=== PATIENT | female | born 1995 | race Caucasian/White ===

== ENCOUNTER 2017-03-07 13:11 | Emergency (ER) | payer BC ==
[2017-03-07] MEDS ORDERED: HYDROmorphone 2 MG/ML SDV IM ONE (14:17)
[2017-03-07] MEDS ORDERED: Lactated Ringers 1,000 ML IV ONE (14:48)
[2017-03-07] MEDS ORDERED: Ondansetron 4 MG/2 ML SDV IVPUSH ONE (14:49)
--- NOTE | 2017-03-07 14:55 | EDM.PDOC ---
ED HPI GENERAL MEDICAL PROBLEM - General Chief Complaint: Back Pain or Injury Stated Complaint: ABD PAIN Time Seen by Provider: 03/07/17 14:25 Source of Information: Reports: Patient History Limitations: Reports: No Limitations - History of Present Illness INITIAL COMMENTS - FREE TEXT/NARRATIVE: 22 yo female with onset today of nausea and L flank pain. No fever. No gross hematuria. Urine dark. No hx of stones or UTI's. Phx of anemia. Took ibuprofen before arrval without relief. Onset: Today Onset Date: 03/07/17 Duration: Hour(s): Location: Reports: Back (L flank) Quality: Reports: Ache, Pressure Severity: Moderate Improves with: Reports: None Worsens with: Reports: None Context: Reports: Other (unknown) Associated Symptoms: Reports: Diaphoresis, Nausea/Vomiting (no vomiting) Treatments INSIDE WIRER: Reports: NSAIDS LEFT BACK AND SIDE Pain Score (Numeric/FACES): 5 - Related Data Allergies Allergy/AdvReac Type Severity Reaction Status Date / Time Sulfa (Sulfonamide Allergy Hives Verified 03/07/17 13:30 Antibiotics) Home Meds: Home Meds Levothyroxine 25 mcg PO DAILY 08/29/14 [History] medroxyPROGESTERone [Provera] 10 mg PO DAILY 08/29/14 [History] Acetaminophen/HYDROcodone [[place] 325-5 MG] 1 - 2 tab PO Q6H PRN #14 tab [Rx] Cephalexin [IJD: Cephalexin] 500 mg PO .EVERY 8 HOURS #20 cap 03/07/17 [Rx] Omeprazole 20 mg PO ASDIRECTED 03/07/17 [History] Ondansetron [Zofran ODT] 4 mg PO Q6H PRN #7 tab.dis 03/07/17 [Rx] Past Medical History Hematologic History: Reports: Anemia - Past Surgical History Female Surgical History: Reports: D&C Social & Family History - Tobacco Use Smoking Status *Q: Never Smoker Second Hand Smoke Exposure: No - Recreational Drug Use Recreational Drug Use: No ED ROS GENERAL - Review of Systems Review Of Systems: See Below Constitutional: Reports: Diaphoresis (mild) HEENT: Reports: No Symptoms Respiratory: Reports: No Symptoms Cardiovascular: Reports: No Symptoms GI/Abdominal: Reports: No Symptoms : Reports: Flank Pain (Left) Musculoskeletal: Reports: Back Pain (L mid/lateral) Skin: Reports: Diaphoresis (mild) Neurological: Reports: No Symptoms Psychiatric: Reports: No Symptoms ED EXAM,LOWER BACK PAIN/INJURY - Physical Exam Exam: See Below Exam Limited By: No Limitations General Appearance: Alert, WD/WN, No Apparent Distress, Obese Eye Exam: Bilateral Eye: Normal Inspection Ears: Normal External Exam, Normal Canal, Hearing Grossly Normal Nose: Normal Inspection, Normal Mucosa, No Blood Throat/Mouth: Normal Inspection, Normal Lips, Normal Teeth, Normal Oropharynx, Normal Voice, No Airway Compromise Head: Atraumatic, Normocephalic Neck: Normal Inspection, Supple, Non-Tender Respiratory/Chest: No Respiratory Distress, Lungs Clear, Normal Breath Sounds, No Accessory Muscle Use Cardiovascular: Regular Rate, Rhythm, No Edema GI/Abdominal: Normal Bowel Sounds, Soft, Non-Tender, No Distention Back Exam: Normal Inspection. No: CVA Tenderness (R), CVA Tenderness (L) Extremities: Normal Inspection, Normal Range of Motion, Non-Tender, No Pedal Edema Neurological: Alert, Normal Mood/Affect, CN II-XII Intact Psychiatric: Normal Affect, Normal Mood Skin Exam: Warm, Dry, Intact, Normal Color, No Rash Lymphatic: No Adenopathy Course - Vital Signs Last Recorded V/S: Last Vital Signs Temp 36.1 C 03/07/17 13:32 Pulse 75 03/07/17 13:32 Resp 18 03/07/17 13:32 BP 141/89 H 03/07/17 13:32 Pulse Ox 100 03/07/17 13:32 - Orders/Labs/Meds Orders: Active Orders 24 hr Category Date Time Status Abdomen Pelvis wo Cont [CT] Stat Exams 03/07/17 15:35 Taken CULTURE URINE [RM] Stat Lab 03/07/17 14:00 Received Sodium Chloride 0.9% [Saline Flush] Med 03/07/17 15:02 Active 10 ml FLUSH ASDIRECTED PRN Saline Lock Insert [OM.PC] Routine Oth 03/07/17 15:02 Ordered Medication Orders Sodium Chloride (Saline Flush) 10 ml FLUSH ASDIRECTED PRN PRN Reason: Keep Vein Open Last Admin: 03/07/17 15:13 Dose: 10 ml Labs: Laboratory Tests 03/07/17 03/07/17 03/07/17 Range/Units 14:10 15:00 15:00 WBC 11.3 (4.5-12.0) X10-3/uL RBC 4.93 (3.23-5.20) x10(6)uL Hgb 13.8 (11.5-15.5) g/dL Hct 40.9 (30.0-51.3) % MCV 82.9 (80-96) fL MCH 28.0 (27.7-33.6) pg MCHC 33.8 (32.2-35.4) g/dL RDW 13.1 (11.5-15.5) % Plt Count 243 (125-369) X10(3)uL Sodium 138 (135-145) mmol/L Potassium 3.6 (3.5-5.3) mmol/L Chloride 110 (100-110) mmol/L Carbon Dioxide 19 L (23-29) mmol/L BUN 13 (5-20) mg/dL Creatinine 1.0 (0.6-1.3) mg/dL Est Cr Clr Drug Dosing TNP Estimated GFR (MDRD) > 60 (>60) BUN/Creatinine Ratio 13.0 (9-20) Glucose 105 (80-116) mg/dL Calcium 8.7 (8.6-10.2) mg/dL C-Reactive Protein 1.5 H (0.0-1.0) mg/dL Urine Color Yellow (YELLOW) Urine Appearance Slightly cloudy (CLEAR) Urine pH 5.0 (5.0-6.5) Ur Specific [place] 1.030 H (1.010-1.025) Urine Protein 30 H (NEGATIVE) mg/dL Urine Glucose (UA) Normal (NEGATIVE) mg/dL Urine Ketones 15 H (NEGATIVE) mg/dL Urine Occult Blood Large H (NEGATIVE) Urine Nitrite Negative (NEGATIVE) Urine Bilirubin Small H (NEGATIVE) Urine Urobilinogen 1 H (NEGATIVE) mg/dL Ur Leukocyte Esterase Moderate H (NEGATIVE) Urine RBC 10-20 H (0) Urine WBC 10-20 H (0) Ur Squamous Epith Cells Occasional (NS,R,O) Calcium Oxalate Crystal Few H (NS) Urine Bacteria Moderate H (NS) Urine Yeast Moderate H (NS) Meds: Medications Generic Name Dose Route Start Last Admin Trade Name Freq PRN Reason Stop Dose Admin Sodium Chloride 10 ml 03/07/17 15:02 03/07/17 15:13 Saline Flush FLUSH 10 ml ASDIRECTED PRN Administration Keep Vein Open Discontinued Medications Generic Name Dose Route Start Last Admin Trade Name Trevonq PRN Reason Stop Dose Admin Acetaminophen 1,000 mg 03/07/17 15:34 03/07/17 15:37 Tylenol Extra Strength PO 03/07/17 15:35 1,000 mg ONETIME ONE Administration Hydromorphone HCl 1 mg 03/07/17 14:17 03/07/17 14:22 Dilaudid IM 03/07/17 14:18 1 mg ONETIME ONE Administration Hydromorphone HCl 0.5 mg 03/07/17 15:37 03/07/17 15:47 Dilaudid IVPUSH 03/07/17 15:38 0.5 mg ONETIME ONE Administration Lactated Ringer's 1,000 mls @ 1,000 mls/hr 03/07/17 14:48 03/07/17 15:13 Ringers, Lactated IV 03/07/17 15:47 1,000 mls/hr BOLUS ONE Administration Ceftriaxone Sodium 1,000 mg/ 50 mls @ 100 mls/hr 03/07/17 16:20 03/07/17 16: 38 Sodium Chloride IV 03/07/17 16:49 100 mls/hr ONETIME ONE Administration Ondansetron HCl 4 mg 03/07/17 14:49 03/07/17 15:16 Zofran IVPUSH 03/07/17 14:50 4 mg ONETIME ONE Administration Departure - Departure Time of Disposition: 17:10 Disposition: Home, Self-Care 01 Condition: Fair Clinical Impression: UTI (urinary tract infection) Qualifiers: Urinary tract infection type: site unspecified Hematuria presence: with hematuria Qualified Code(s): N39.0 - Urinary tract infection, site not specified - Discharge Information Prescriptions: Acetaminophen/HYDROcodone [[place] 325-5 MG] 1 - 2 tab PO Q6H PRN #14 tab PRN Reason: Pain Cephalexin [IJD: Cephalexin] 500 mg PO .EVERY 8 HOURS #20 cap Ondansetron [Zofran ODT] 4 mg PO Q6H PRN #7 tab.dis PRN Reason: Nausea Referrals: Jory Ramesh [employer] [Primary Care Provider] - Forms: ED Department Discharge, ED Return to Work/School Form Additional Instructions: Take Cephalexin starting tomorrow early afternoon every 8 hrs until gone. Take Zofran as needed for nausea control. Take Harrod and/or ibuprofen as needed for pain or fever control. Drink more fluids. Rest. Recheck with your doctor in 2-3 days. Return if worse. - My Orders Last 24 Hours: My Active Orders 03/07/17 14:00 CULTURE URINE [RM] Stat 03/07/17 15:02 Sodium Chloride 0.9% [Saline Flush] 10 ml FLUSH ASDIRECTED PRN Saline Lock Insert [OM.PC] Routine 03/07/17 15:35 Abdomen Pelvis wo Cont [CT] Stat - Assessment/Plan Last 24 Hours: My Active Orders 03/07/17 14:00 CULTURE URINE [RM] Stat 03/07/17 15:02 Sodium Chloride 0.9% [Saline Flush] 10 ml FLUSH ASDIRECTED PRN Saline Lock Insert [OM.PC] Routine 03/07/17 15:35 Abdomen Pelvis wo Cont [CT] Stat
[2017-03-07] MEDS ORDERED: Sodium Chloride 0.9% 10 ML Syringe FLUSH PRN (15:02)
[2017-03-07] MEDS ORDERED: Acetaminophen 500 MG Tab PO ONE (15:34)
[2017-03-07] MEDS ORDERED: HYDROmorphone 2 MG/ML SDV IVPUSH ONE (15:37)
[2017-03-07] MEDS ORDERED: cefTRIAXone 1,000 MG in Sodium Chloride 0.9% 50 ML IV ONE (16:20)
[2017-03-07 17:21] VITALS: BP 138/78
--- NOTE | 2017-03-08 09:20 | CT ---
INDICATION: Left-sided pain started at 1230 today. Question kidney stone. CT ABDOMEN AND PELVIS WITHOUT CONTRAST: Spiral 1.25-mm axial sections were obtained through the abdomen and pelvis with sagittal and coronal reconstructions, utilizing no contrast for renal calculus protocol. Total Exam DLP = 2182.20 mGy-cm. The lower lung marie and pleural spaces visualized appeared normal. The heart was not enlarged. No gallstones were demonstrated. No liver abnormality was seen. The spleen and pancreas appear normal. The adrenal glands were unremarkable. There is suggestion of some very tiny calcifications in the mid to lower pole area of the left kidney on the order of 1 mm in diameter or smaller. There is relative dilatation of the proximal left ureter, possibly with a calcification within it of very small size. The left renal pelvis appears slightly more prominent than the right. The left ureter transitions to normal caliber in its proximal to mid third. There does appear to be a definite calculus of very small size in the proximal ureter, however, where it is relatively dilated. That calcification does not appear to be obstructive, however. As mentioned above, however, the proximal ureter and pyelocaliceal system on the left is relatively prominent compared with the right, raising question of a possibility of either an intermittent or a recent obstructive process at the proximal third of the left ureter. A significant sized area of renal calcinosis was not identified bilaterally. The urinary bladder was not distended - no definite calculi were seen within the urinary bladder. What appears to be a phlebolith is noted at the right lower pelvis. No definite uterine abnormality was seen. No evidence of bowel obstruction was identified. The appendix appeared normal to slightly prominent in caliber, but with no definite evidence of appendicitis. It is seen on axial images #192 through #218. It extends cranially and retrocecal in the right paracolic gutter. The possibility of pyelonephritis on the left cannot be excluded and, as well, a recent obstructive process cannot be excluded. Depending upon clinical correlation, CT with IV contrast may be helpful for further evaluation. No retroperitoneal masses were identified. Retroperitoneal lymphadenopathy is minimal and nonspecific. No additional organomegaly, mass lesions, or free fluid collections were identified in the abdomen or pelvis. IMPRESSION: 1. Relatively dilated left pyelocaliceal system and proximal third of the left ureter with a calcification noted in the proximal third of the left ureter and a few areas of very tiny calcification suggested in the lower left kidney. Findings are felt to be most compatible with a recent obstructive uropathy, but should be correlated clinically. CT with IV contrast may be of further diagnostic benefit, depending upon clinical correlation, especially if pyelonephritis is suspected clinically. 2. Mild dextroconvex scoliosis thoracolumbar spine could be positional. CT PELVIS: Examination of the pelvis was obtained by CT, as noted above, revealing no organomegaly, mass lesions, or free fluid collections. What appears to be a phlebolith is noted in the lower right pelvis. No urinary bladder calculi or ureteral calculi were identified. Report was called to Dr. Hayes at 1619 hours, 03/07/2017. [facility]
== END 2017-03-07 17:10 | disposition home or self-care (01) ==
LOC: FB.ED 13:11
DX: N39.0 Urinary tract infection, site not specified (principal); Z88.2 Allergy status to sulfonamides; Z79.899 Other long term (current) drug therapy
CPT/HCPCS: 36415; 74176; 80048; 81001; 85027; 86140; 87086; 96361; 96365; 96375; 96376; 99285; A9270; J0696; J1170; J2405; J7050; J7120

== ENCOUNTER 2017-03-23 08:21 | Day surgery (SDC) | payer BC ==
[2017-03-23] MEDS ORDERED: Sodium Chloride 0.9% 10 ML Syringe FLUSH PRN (08:30)
[2017-03-23] MEDS ORDERED: Lactated Ringers 1,000 ML IV SCH (08:30)
--- NOTE | 2017-03-23 09:13 | PCM.HP ---
H&P History of Present Illness - General Date of Service: 03/23/17 Admit Problem/Dx: Admission Diagnosis/Problem Admission Diagnosis/Problem Esophagogastroduodenoscopy Source of Information: Patient - History of Present Illness Initial Comments - Free Text/Narative: 22 yo wf who presents with a hx of epigastric pain, and nausea. This has been going on for about a month. The pain can radiate a little to the ruq. She has had an us which was negative. No black or bloody stools. - Related Data Allergies/Adverse Reactions: Allergies Allergy/AdvReac Type Severity Reaction Status Date / Time Sulfa (Sulfonamide Allergy Hives Verified 03/07/17 13:30 Antibiotics) Home Medications: Home Meds Levothyroxine 25 mcg PO DAILY 08/29/14 [History] medroxyPROGESTERone [Provera] 10 mg PO DAILY 08/29/14 [History] Acetaminophen/HYDROcodone [[place] 325-5 MG] 1 - 2 tab PO Q6H PRN #14 tab [Rx] Cephalexin [IJD: Cephalexin] 500 mg PO .EVERY 8 HOURS #20 cap 03/07/17 [Rx] Omeprazole 20 mg PO ASDIRECTED 03/07/17 [History] Ondansetron [Zofran ODT] 4 mg PO Q6H PRN #7 tab.dis 03/07/17 [Rx] Past Medical History Endocrine/Metabolic History: Reports: Hypothyroidism Hematologic History: Reports: Anemia - Past Surgical History Female Surgical History: Reports: D&C Social & Family History - Tobacco Use Smoking Status *Q: Never Smoker Second Hand Smoke Exposure: No - Alcohol Use Alcohol Use History: Yes Alcohol Use Frequency: Rarely Alcohol Use Comment: 2-3 beers a month - Recreational Drug Use Recreational Drug Use: No H&P Review of Systems - Review of Systems: Review Of Systems: See Below General: Reports: No Symptoms HEENT: Reports: No Symptoms Pulmonary: Reports: Cough (with recent could ) Cardiovascular: Reports: No Symptoms Gastrointestinal: Reports: Abdominal Pain, Nausea Genitourinary: Reports: No Symptoms Musculoskeletal: Reports: Back Pain Exam - Exam Exam: See Below - Vital Signs Weight: 131.542 kg - Exam General: Alert, Oriented Lungs: Clear to Auscultation, Normal Respiratory Effort Cardiovascular: Regular Rate, Regular Rhythm GI/Abdominal Exam: Normal Bowel Sounds, Soft, Non-Tender Back Exam: Normal Inspection Skin: Warm, Dry, Intact - Patient Data Lab Results Last 24 hrs: Laboratory Results - last 24 hr 03/23/17 Range/Units 08:35 Urine HCG, Qual Negative (NEGATIVE) *Q Meaningful Use (ADM) - VTE *Q VTE Criteria *Q: - Stroke *Q Stroke Criteria *Q: - AMI *Q AMI Criteria *Q: - Problem List (1) Epigastric abdominal pain SNOMED Code(s): 95596340 ICD Code: R10.13 - EPIGASTRIC PAIN Status: Acute Current Visit: Yes Problem List Initiated/Reviewed/Updated: Yes Orders Last 24hrs: Active Orders 24 hr Category Date Time Status Patient Status [ADT] Routine ADT 03/23/17 08:30 Ordered Patient to Empty Bladder [RC] ASDIRECTED Care 03/23/17 08:30 Active Verify Patient Consent Obtain [RC] ASDIRECTED Care 03/23/17 08:30 Active Lactated Ringers [Ringers, Lactated] 1,000 ml Med 03/23/17 08:30 Active IV ASDIRECTED Sodium Chloride 0.9% [Saline Flush] Med 03/23/17 08:30 Active 10 ml FLUSH ASDIRECTED PRN Peripheral IV Insertion Adult [OM.PC] Routine Oth 03/23/17 08:30 Ordered Resuscitation Status Routine Resus Stat 03/22/17 14:25 Ordered Medication Orders Lactated Ringer's (Ringers, Lactated) 1,000 mls @ 125 mls/hr IV ASDIRECTED BESSY Sodium Chloride (Saline Flush) 10 ml FLUSH ASDIRECTED PRN PRN Reason: Keep Vein Open Assessment/Plan Comment:: plan egd. procedure and risks explained to the pt to include bleeding, infection and perforation. She expressed understanding and asks us to proceed.
[2017-03-23] MEDS ORDERED: fentaNYL 100 MCG/2 ML SDV IV ONE (11:30)
[2017-03-23] MEDS ORDERED: Midazolam 1 MG/ML 2 ML SDV IV ONE (11:30)
[2017-03-23] MEDS ORDERED: Lidocaine 2% 100 MG/5 ML Syringe IVPUSH ONE (11:30)
[2017-03-23] MEDS ORDERED: Propofol 200 MG/20 ML SDV IV ONE (11:30)
--- NOTE | 2017-03-23 12:02 | PCM.OPNOTE ---
- General Post-Op/Procedure Note Date of Surgery/Procedure: 03/23/17 Operative Procedure(s): egd with bx Findings: gastritis Pre Op Diagnosis: epgastric abd pain Post-Op Diagnosis: gastritis Anesthesia Technique: MAC Primary Surgeon: Blake Browning Anesthesia Provider: Chantel [place] Pathology: stomach Complications: None Condition: Good Free Text/Narrative:: see dictation
[2017-03-23 12:47] VITALS: BP 131/65
--- NOTE | 2017-03-23 14:00 | OR ---
DATE OF OPERATION: 03/23/2017 SURGEON: Blake Browning MD PROCEDURE PERFORMED: EGD with cold forceps biopsy. PREOPERATIVE DIAGNOSIS: Epigastric pain. POSTOPERATIVE DIAGNOSIS: Gastritis. INDICATIONS FOR PROCEDURE: This 22-year-old white female had one month history of epigastric abdominal pain and nausea. She was offered and accepted an EGD. DESCRIPTION OF PROCEDURE: After an excellent IV sedation was administered, the bite block was inserted. The flexible endoscope was passed without difficulty down the patient's esophagus into the stomach. Stomach was insufflated. Scope was passed through the pylorus to the second portion of duodenum and slowly withdrawn. The following findings were noted: Duodenum unremarkable. Stomach in the area of the antrum, mild gastritis. Biopsies were taken. GE junction measured approximately 35 cm. The esophagus was unremarkable. Stomach was deflated as the scope was removed. The patient tolerated the procedure well, was taken to recovery room in good condition. /[id number] ANUEL/PATRIA
== END 2017-03-23 12:54 | disposition home or self-care (01) ==
LOC: FB.SDS 08:21
PROVIDERS: ATTEND Surgery
DX: K29.50 Unspecified chronic gastritis without bleeding (principal); D64.9 Anemia, unspecified; Z88.2 Allergy status to sulfonamides; Z79.899 Other long term (current) drug therapy; Z98.890 Other specified postprocedural states
CPT/HCPCS: 43239; 81025; 88305; 88342; J2250; J2704; J3010; J7120

== ENCOUNTER 2017-04-06 01:44 | Emergency (ER) | payer BC ==
[2017-04-06] MEDS ORDERED: Ketorolac 60 MG/2 ML SDV IM ONE (01:54)
[2017-04-06] MEDS ORDERED: Ondansetron 4 MG Tab.DIS PO ONE (01:54)
--- NOTE | 2017-04-06 01:57 | EDM.PDOC ---
ED HPI GENERAL MEDICAL PROBLEM - General Chief Complaint: Genitourinary Problem Stated Complaint: UTI Time Seen by Provider: 04/06/17 01:50 Source of Information: Reports: Patient History Limitations: Reports: No Limitations - History of Present Illness INITIAL COMMENTS - FREE TEXT/NARRATIVE: Onset of L low back about 7 pm Tues. Has nausea, vomiting. No fever. Feels like a possible UTI. Had a UTI recently the middle of . Took a "pain pill" without relief. CT at that time was suggestive of a recently passed small kidney stone. Onset Date: 04/05/17 Onset Time: 19:00 Duration: Hour(s): Location: Reports: Back (Left low back) Quality: Reports: Ache Severity: Moderate Improves with: Reports: None Worsens with: Reports: None Context: Reports: Other (UTI a month ago.) Associated Symptoms: Reports: Nausea/Vomiting Treatments STATOR TESTER: Reports: Other Medication(s) Left Flank Pain Score (Numeric/FACES): 4 - Related Data Allergies Allergy/AdvReac Type Severity Reaction Status Date / Time Sulfa (Sulfonamide Allergy Hives Verified 04/06/17 02:11 Antibiotics) Home Meds: Home Meds Levothyroxine 25 mcg PO DAILY 08/29/14 [History] medroxyPROGESTERone [Provera] 10 mg PO DAILY 08/29/14 [History] Omeprazole 20 mg PO ASDIRECTED 03/07/17 [History] Ondansetron [Zofran ODT] 4 mg PO Q6H PRN #7 tab.dis 03/07/17 [Rx] Acetaminophen/HYDROcodone [[place] 325-5 MG] 2 tab PO Q6H PRN 04/06/17 [History] Acetaminophen/HYDROcodone [[place] 325-7.5 MG] 1 - 2 tab PO Q6H PRN #20 tab [Rx] Ondansetron [Zofran ODT] 4 mg PO Q6H PRN #10 tab.dis 04/06/17 [Rx] Past Medical History Endocrine/Metabolic History: Reports: Hypothyroidism Hematologic History: Reports: Anemia - Past Surgical History Female Surgical History: Reports: D&C Social & Family History - Tobacco Use Smoking Status *Q: Never Smoker Second Hand Smoke Exposure: No - Caffeine Use Caffeine Use: Reports: Soda - Recreational Drug Use Recreational Drug Use: No ED ROS GENERAL - Review of Systems Review Of Systems: See Below Constitutional: Reports: No Symptoms Respiratory: Reports: No Symptoms Cardiovascular: Reports: No Symptoms GI/Abdominal: Reports: Nausea, Vomiting : Reports: No Symptoms Musculoskeletal: Reports: Back Pain (left side) Skin: Reports: No Symptoms Neurological: Reports: No Symptoms ED EXAM, RENAL/ - Physical Exam Exam: See Below Exam Limited By: No Limitations General Appearance: Alert, WD/WN, No Apparent Distress, Obese Respiratory/Chest: No Respiratory Distress, Lungs Clear, Normal Breath Sounds, No Accessory Muscle Use Cardiovascular: Regular Rate, Rhythm, No Edema Back Exam: Normal Inspection. No: CVA Tenderness (R), CVA Tenderness (L) Extremities: Normal Inspection, Normal Range of Motion, Non-Tender, No Pedal Edema Neurological: Alert, Oriented, CN II-XII Intact, Normal Cognition, No Motor/ Sensory Deficits Psychiatric: Normal Affect, Normal Mood Skin Exam: Warm, Dry, Intact, Normal Color, No Rash Lymphatic: No Adenopathy Course - Vital Signs Last Recorded V/S: Last Vital Signs Temp 36.7 C 04/06/17 01:45 Pulse 80 04/06/17 01:45 Resp 16 04/06/17 01:45 BP 147/89 H 04/06/17 01:45 Pulse Ox 100 04/06/17 01:45 - Orders/Labs/Meds Labs: Laboratory Tests 04/06/17 Range/Units 02:15 Urine Color Yellow (YELLOW) Urine Appearance Slightly cloudy (CLEAR) Urine pH 5.0 (5.0-6.5) Ur Specific [place] 1.020 (1.010-1.025) Urine Protein Trace (NEGATIVE) mg/dL Urine Glucose (UA) 50 H (NEGATIVE) mg/dL Urine Ketones 15 H (NEGATIVE) mg/dL Urine Occult Blood Large H (NEGATIVE) Urine Nitrite Negative (NEGATIVE) Urine Bilirubin Negative (NEGATIVE) Urine Urobilinogen 1 H (NEGATIVE) mg/dL Ur Leukocyte Esterase Small H (NEGATIVE) Urine RBC 75-100 H (0) Urine WBC 0-5 (0) Ur Squamous Epith Cells Occasional (NS,R,O) Urine Bacteria Rare H (NS) Hyaline Casts Few H (NS) Urine Mucus Few H (NS) Meds: Medications Discontinued Medications Generic Name Dose Route Start Last Admin Trade Name Freq PRN Reason Stop Dose Admin Hydrocodone Bitart/Acetaminophen 1 tab 04/06/17 03:06 [place] 325-5 Mg PO 04/06/17 03:07 ONETIME ONE Ketorolac Tromethamine 60 mg 04/06/17 01:54 04/06/17 02:13 Toradol IM 04/06/17 01:55 60 mg ONETIME ONE Administration Ondansetron HCl 4 mg 04/06/17 01:54 04/06/17 02:13 Zofran Odt PO 04/06/17 01:55 4 mg ONETIME ONE Administration Departure - Departure Time of Disposition: 03:11 Disposition: Home, Self-Care 01 Condition: Fair Clinical Impression: Ureterolithiasis - Discharge Information Prescriptions: Acetaminophen/HYDROcodone [[place] 325-7.5 MG] 1 - 2 tab PO Q6H PRN #20 tab PRN Reason: Pain Ondansetron [Zofran ODT] 4 mg PO Q6H PRN #10 tab.dis PRN Reason: Nausea Referrals: Jory Ramesh NP [Primary Care Provider] - Forms: ED Department Discharge, ED Return to Work/School Form Additional Instructions: Strain urine and save any sediment. Take Zofran every 6 hrs as needed for nausea. Take ibuprofen 400 mg every 6 hrs with food for pain relief. Add [place] for additional pain relief. Drink ample fluids. Recheck in the clinic this Tuesday, call for an appt.
[2017-04-06 02:21] VITALS: BP 147/89
[2017-04-06] MEDS ORDERED: Acetaminophen/HYDROcodone 325-5 MG Tab PO ONE (03:06)
== END 2017-04-06 03:30 | disposition home or self-care (01) ==
LOC: FB.ED 01:44
DX: N20.1 Calculus of ureter (principal); E03.9 Hypothyroidism, unspecified; D64.9 Anemia, unspecified; Z88.2 Allergy status to sulfonamides; Z79.899 Other long term (current) drug therapy
CPT/HCPCS: 81001; 82962; 96372; 99283; A9270; J1885